=== PATIENT | male | born 1995 | race Caucasian/White ===

== ENCOUNTER 2018-06-29 18:42 | Emergency (ER) | payer BC, OTHER ==
[2018-06-29] MEDS ORDERED: LORazepam 2 MG/ML INJ IVP ONE (18:43)
[2018-06-29] MEDS ORDERED: NS 1,000 ML IV ONE ×2 (18:43→19:27)
--- NOTE | 2018-06-29 18:49 | EDPHY ---
H & P Time Seen by Provider: 06/29/18 18:43 HPI/ROS: CHIEF COMPLAINT: Seizure HISTORY OF PRESENT ILLNESS: The patient is a 22-year-old man whose friends called paramedics because he had a generalized tonic-clonic seizure. He does have oral trauma. No incontinence. He denies recent fevers or illness. He states that he has never had a seizure before but he has had several concussions. He thinks he may have had a concussion either yesterday or the day before but does not remember the circumstances. He is still slightly postictal. He is improved compared to when paramedics 1st picked him up. His vital signs are stable. He does not take any medications. He denies significant alcohol ingestion or withdrawal. He denies benzodiazepine use. Does have a mild headache. Severity: Moderate Modifying factors: Improving with time REVIEW OF SYSTEMS: Constitutional: denies: chills, fever, recent illness, recent injury EENTM: denies: blurred vision, double vision, nose congestion Respiratory: denies: cough, shortness of breath Cardiac: denies: chest pain, irregular heart rate, lightheadedness, palpitations Gastrointestinal/Abdominal: denies: abdominal pain, diarrhea, nausea, vomiting, blood streaked stools Genitourinary: denies: dysuria, frequency, hematuria, pain Musculoskeletal: denies: joint pain, muscle pain Skin: denies: lesions, rash, jaundice, bruising Neurological: See HPI, mild confusion denies: headache, numbness, paresthesia, tingling, dizziness, weakness Hematologic/Lymphatic: denies: blood clots, easy bleeding, easy bruising Immunologic/allergic: denies: HIV/AIDS, transplant 10 systems reviewed and negative except as noted EXAM: GENERAL: Well-appearing, well-nourished and in no acute distress. HEAD: Atraumatic, normocephalic. EYES: Pupils equal round and reactive to light, extraocular movements intact, sclera anicteric, conjunctiva are normal. ENT: TMs normal, nares patent, small abrasion to anterior tongue. Moist mucous membranes. NECK: Normal range of motion, supple without lymphadenopathy or JVD. LUNGS: Breath sounds clear to auscultation bilaterally and equal. No wheezes rales or rhonchi. HEART: Regular rate and rhythm without murmurs, rubs or gallops. ABDOMEN: Soft, nontender, normoactive bowel sounds. No guarding, no rebound. No masses appreciated. BACK: No CVA tenderness, no spinal tenderness, step-offs or deformities EXTREMITIES: Normal range of motion, no pitting or edema. No clubbing or cyanosis. NEUROLOGICAL: Cranial nerves II through XII grossly intact. Normal speech, normal gait. 5/5 strength, normal movement in all extremities, normal sensation , normal reflexes PSYCH: Normal mood, normal affect. SKIN: Warm, dry, normal turgor, no visible rashes or lesions. Source: Patient, EMS Exam Limitations: Clinical condition - Medical/Surgical History Hx Asthma: No Hx Chronic Respiratory Disease: No Hx Diabetes: No Hx Cardiac Disease: No Hx Renal Disease: No Hx Cirrhosis: No Hx Alcoholism: No Hx HIV/AIDS: No Hx Splenectomy or Spleen Trauma: No Other PMH: denies - Family History Significant Family History: No pertinent family hx - Social History Smoking Status: Never smoked Alcohol Use: Occasionally Drug Use: None Constitutional: Initial Vital Signs Temperature (C) 36.5 C 06/29/18 18:50 Heart Rate 95 06/29/18 18:50 Respiratory Rate 16 06/29/18 18:50 Blood Pressure 130/60 H 06/29/18 18:50 O2 Sat (%) 100 06/29/18 18:50 O2 Delivery Mode Room Air Allergies/Adverse Reactions: No Known Allergies Allergy (Unverified 08/24/16 13:26) Home Medications: Medication Instructions Recorded NK [No Known Home Meds] 08/24/16 Medical Decision Making - Diagnostics Imaging Results: Imaging Impressions Head CT 06/29/18 18:44 Impression: Severely motion limited study with no acute intracranial findings. If symptoms persist and medical suspicion warrants, consider repeat CT or MRI. Findings discussed with TAYLOR RICE 06/29/2018 at 19:27. Imaging: Discussed imaging studies w/ banquet server on call Radiologist ED Course/Re-evaluation: We discussed the CT results which are reassuring. Patient's electrolytes are reassuring other than his large gap. I will hydrate and recheck patient is mentating normally currently. 9:20 p.m. patient is feeling completely better. His anion gap is closed. His family is here to take him. We discussed seizures and follow up with Neurology. We discussed indications for returning. Differential Diagnosis: Partial list of the Differential diagnosis considered include but were not limited to; seizure, withdrawal, epilepsy and although unlikely based on the history and physical exam, I also considered trauma, infection. - Data Points Laboratory Results: Laboratory Results 06/29/18 18:45 18 20:30 18 18 06/29/18 20:30 18:45 18:45 WBC 8.55 10^3/uL 10^3/uL (3.80-9.50) RBC 5.62 10^6/uL 10^6/uL (4.40-6.38) Hgb 18.4 g/dL H g/dL (13.7-17.5) Hct 54.0 % H % (40.0-51.0) MCV 96.1 fL fL (81.5-99.8) MCH 32.7 pg pg (27.9-34.1) MCHC 34.1 g/dL g/dL (32.4-36.7) RDW 12.4 % % (11.5-15.2) Plt Count 309 10^3/uL 10^3/uL (150-400) MPV 9.5 fL fL (8.7-11.7) Neut % (Auto) 47.3 % % (39.3-74.2) Lymph % (Auto) 40.9 % % (15.0-45.0) Sargent % (Auto) 8.9 % % (4.5-13.0) Eos % (Auto) 1.9 % % (0.6-7.6) Baso % (Auto) 0.6 % % (0.3-1.7) Nucleat RBC Rel Count 0.0 % % (0.0-0.2) Absolute Neuts (auto) 4.05 10^3/uL 10^3/uL (1.70-6.50) Absolute Lymphs (auto) 3.50 10^3/uL H 10^3/uL (1.00-3.00) Absolute Monos (auto) 0.76 10^3/uL 10^3/uL (0.30-0.80) Absolute Eos (auto) 0.16 10^3/uL 10^3/uL (0.03-0.40) Absolute Basos (auto) 0.05 10^3/uL 10^3/uL (0.02-0.10) Absolute Nucleated RBC 0.00 10^3/uL 10^3/uL (0-0.01) Immature Gran % 0.4 % % (0.0-1.1) Immature Gran # 0.03 10^3/uL 10^3/uL (0.00-0.10) Sodium 140 mEq/L mEq/L 140 mEq/L mEq/L (135-145) (135-145) Potassium 3.6 mEq/L mEq/L 4.1 mEq/L mEq/L (3.3-5.0) (3.3-5.0) Chloride 108 mEq/L mEq/L 100 mEq/L mEq/L (97-110) (97-110) Carbon Dioxide 23 mEq/l mEq/l 13 mEq/l L mEq/l (22-31) (22-31) Anion Gap 9 mEq/L mEq/L 27 mEq/L H mEq/L (8-16) (8-16) BUN 7 mg/dL mg/dL 7 mg/dL mg/dL (7-23) (7-23) Creatinine 0.9 mg/dL mg/dL 1.1 mg/dL mg/dL (0.7-1.3) (0.7-1.3) Estimated GFR > 60 > 60 Glucose 94 mg/dL mg/dL 150 mg/dL H mg/dL (70-100) (70-100) Calcium 9.1 mg/dL mg/dL 10.5 mg/dL H mg/dL (8.5-10.4) (8.5-10.4) Medications Given: Discontinued Medications Sodium Chloride (Ns) 1,000 mls @ 0 mls/hr IV ONCE ONE; Wide Open PRN Reason: Protocol Stop: 06/29/18 18:44 Last Admin: 06/29/18 19:10 Dose: 1,000 mls Sodium Chloride (Ns) 1,000 mls @ 0 mls/hr IV EDNOW ONE; Wide Open PRN Reason: Protocol Stop: 06/29/18 19:28 Last Admin: 06/29/18 19:32 Dose: 1,000 mls Lorazepam (Ativan Injection) 1 mg IVP EDNOW ONE Stop: 06/29/18 18:44 Last Admin: 06/29/18 19:10 Dose: 1 mg Departure - Departure Disposition: Home, Routine, Self-Care Clinical Impression: Seizure Condition: Fair Instructions: New-Onset Seizure in Adults (ED) Additional Instructions: Do not drive, swim or operate heavy machinery until cleared by Neurology. Referrals: Patient,NotPresent [Unknown] - As per Instructions Taylor Cerna DO [Doctor of Osteopathy] - 5-7 days, if not improved
[2018-06-29 19:04] LABS: PLATELET COUNT 309 10^3/uL (150-400)
[2018-06-29 21:45] VITALS: BP 126/94
== END 2018-06-29 21:44 | disposition home or self-care (01) ==
LOC: EDUNIT#
DX: R56.9 Unspecified convulsions (principal); E86.9 Volume depletion, unspecified
CPT/HCPCS: 96374; J2060

== ENCOUNTER → 2018-07-27 | Outpatient (CLI) | payer BC, OTHER | LOC: FIMAGING 11:00 | PROVIDERS: ATTEND Physician Assistant Medical | DX: R56.9 Unspecified convulsions (principal) ==

== ENCOUNTER → 2018-08-03 | Outpatient (CLI) | payer BC ==
--- NOTE | 2018-08-03 12:06 | CPEEG ---
DATE OF STUDY: 08/03/2018 INTERPRETATION: Normal EEG during wakefulness and drowsiness. There were no potentially epileptogen ic abnormalities present during the recording. REPORT: This EEG contains 10 Hz alpha activity to the posterior head regions. There was no abnormal activation at rest, during photic stimulation or hyperventilation. The patient intermittently becam e drowsy during the study. There was no abnormal activation during drowsiness or during times of niko usal. The patient did not fall into sustained sleep during the study. If clinically indicated, a re peat 4-hour video EEG could be helpful in capturing sustained sleep. /[id number]/MODL
== END ==
LOC: FCPNEURO 09:55
PROVIDERS: ATTEND Physician Assistant Medical
DX: R56.9 Unspecified convulsions (principal)

== ENCOUNTER 2018-10-02 13:46 | Emergency (ER) | payer OTHER ==
--- NOTE | 2018-10-02 14:44 | EDPHY ---
HPI/HX/ROS/PE/MDM Narrative: CLINICAL IMPRESSION: Facial contusion, cervical strain, Auricular contusion, concussion ASSESSMENT/PLAN: 23-year-old very pleasant otherwise healthy meg at [facility] presents to the emergency department after he drank heavily for his 23st birthday last night and had several falls. Patient presents with several abrasions to the face, a large contusion to the left auricle with no evidence of an auricular hematoma, contusion to the left mastoid and reproducible midline neck pain. Patient was placed in a C-collar shortly after arrival. CT head, C-spine and maxillofacial bones was obtained and read by Radiology as negative for any acute fracture, subluxation, or intracranial hemorrhage. C- collar were then removed by myself. Patient remains without upper extremity radiculopathy or weakness. He has an otherwise nonfocal neurological exam. He does not require I&D of an auricular hematoma. Vaccines are up-to-date. Local primary care referral given and encouraged follow-up in the next 24-48 hours. 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 Home care reviewed , warning signs return to ED sooner outlined in person and discharge papers. DIFFERENTIAL DX: Differential diagnosis includes but not limited to maxillofacial fracture, basilar skull fracture, C-spine fracture, C-spine subluxation, cervical strain, facial contusion, concussion, postconcussive syndrome ED PROCEDURES: See imaging results below ED COURSE: 3:25 p.m.: CT results discussed with Dr. Blake from Radiology. No evidence of acute basilar skull fracture, intracranial bleeding, facial fractures or acute C-spine fracture or subluxation. CHIEF COMPLAINT: Facial pain, ear pain, headache, dizziness HPI: This is a very pleasant 23-year-old [facility] meg who presents to the emergency department stating"it was my 23st birthday last night". Patient reports that he does not remember anything from the night. He states he did go to a fraternity green party and was apparently being walked home by his return and a brother. A group of students approach them and his fraternity brother let go of him briefly and he apparently fell. Patient however believes he fell multiple times last night however cannot recollect how many times he fell. When he awoke this morning he noted bruising and pain along the left ear , facial abrasions and pain, neck pain, dizziness and headache. He reports no nausea or vomiting. No reported upper extremity weakness or numbness. He did not take anything for headache. He has no history of TBI or prior closed head injury and is not anticoagulated. No seizure activity. He does not recollect how much he had to drink last night. He is otherwise healthy and reports no other medical history. He did not abuse drugs last night. Tetanus is up-to- date. PMH: None reported Pertinent Past Surgical History: None reported Family History: Noncontributory Social History: A meg at [facility], nonsmoker REVIEW OF SYSTEMS: All other systems negative Constitutional: No fever, no chills, appetite change. Eyes: No discharge, vision change ENT: Left ear pain, no tinnitus hearing loss or discharge from the ear] Cardiovascular: No chest pain, no palpitations. Respiratory: No cough, no shortness of breath. Gastrointestinal: No abdominal pain, no vomiting, diarrhea. Genitourinary: No hematuria, dysuria, flank pain, pelvic pain Musculoskeletal: Positive for neck pain and upper back pain Skin: Positive for abrasions Neurological: Positive for headache and dizziness PHYSICAL EXAM: General Appearance: Alert, oriented, appropriate, cooperative, obvious swelling to face. Vital signs stable HEENT: TMs are clear bilaterally no perforation or FB, no injection, no evidence of serous or mucopurulent otitis. Large left a regular contusion with no drainable irregular hematoma. Bruising noted to the mastoid bone, unclear if this is Pelaez sign versus contusion from a fall. No hemotympanum Oropharynx clear is no erythema or exudates, no tonsillar hypertrophy or asymmetry. No septal hematoma or epistaxis Dentition without abnormality. No malocclusion or obvious dental injury. No intraoral laceration. No mandibular pain or trismus Eyes: PERRLA, no acute vision change, nystagmus, swelling, discharge, pain or photosensitivity. Conjunctiva pink, no pallor or injection. No diplopia or entrapment Neck: Supple, nontender, no lymphadenopathy, positive for midline pain through lower C-spine and upper thoracic spine, FROM although this worsens pain. Negative Spurling test,, no meningismus. Respiratory: There are no retractions, lungs are clear to auscultation, bruising noted to left anterior chest wall for. Cardiac: Regular rate and rhythm, no murmurs or gallops. Gastrointestinal: Abdomen is soft, nontender, bowel sounds normal, no masses/ hernia, no rigidity, guarding or focal peritoneal findings. Neurological: Alert and oriented x 3, CN 2-12 grossly intact, normal gait no ataxia, DTR's intact, normal sensation and strength Skin: Superficial abrasions to forehead and bridge of nose] Musculoskeletal: Extremities are symmetrical, full range of motion, no tenderness, deformity, swelling, or erythema. Psychiatric: Patient is oriented X 3, there is no agitation. MEDICAL DECISION MAKING: Patient was seen independently. Secondary supervising physician at time of evaluation was Dr. Rodarte . Diagnosis: Facial abrasions, facial and left auricle contusion, concussion, closed-head injury, cervical strain. New, requires workup Summary: See Assessment and Plan for summary of ED visit Independent visualization of images, tracing, or specimens: Yes. Discussed patient with another provider: Radiology Patient Progress: Stable. - Data Points Imaging Results: Imaging Impressions Cervical Spine CT 10/02/18 14:32 Impression: No acute posttraumatic abnormality identified. If there is persistent pain or neurologic deficit, consider MRI and/or flexion and extension views if clinically indicated. Findings discussed with Adrian Lainez 10/02/2018 at 15:22. Face CT 10/02/18 14:32 Impression: No acute findings. Findings discussed with Adrian Lainez 10/02/2018 at 15:22. Head CT 10/02/18 14:32 Impression: No acute intracranial findings. Findings discussed with Adrian Lainez 10/02/2018 at 15:22. General Time Seen by Provider: 10/02/18 14:06 Initial Vital Signs: Initial Vital Signs Temperature (C) 36.7 C 10/02/18 13:55 Heart Rate 107 H 10/02/18 13:55 Respiratory Rate 16 10/02/18 13:55 Blood Pressure 135/84 H 10/02/18 13:55 O2 Sat (%) 92 10/02/18 13:55 O2 Delivery Mode Room Air Allergies/Adverse Reactions: No Known Allergies Allergy (Unverified 08/24/16 13:26) Home Medications: Medication Instructions Recorded NK [No Known Home Meds] 08/24/16 Departure - Departure Disposition: Home, Routine, Self-Care Clinical Impression: Facial contusion Closed head injury Qualifiers: Encounter type: initial encounter Qualified Code(s): S09.90XA - Unspecified injury of head, initial encounter Concussion Qualifiers: Encounter type: initial encounter Loss of consciousness presence/duration: without LOC Qualified Code(s): S06.0X0A - Concussion without loss of consciousness, initial encounter Contusion of auricle of left ear Qualifiers: Encounter type: initial encounter Qualified Code(s): S00.432A - Contusion of left ear, initial encounter Condition: Good Instructions: Concussion (ED), Post Concussion Syndrome (ED) Additional Instructions: DISCHARGE INSTRUCTIONS FROM YOUR DOCTOR Thank you for visiting our emergency department today. Please keep in mind that discharge from the emergency department does not mean that there is nothing wrong - it simply means that we have not identified an emergency condition that requires further evaluation or treatment in the hospital. You should always plan to follow up with primary care for re-evaluation of your condition in the next 2-3 days. If you have been referred to a specialist, please call as soon as possible (today or tomorrow) to schedule your follow up appointment at the appropriate time. The radiologist read the CT scan of her head, neck, and face as negative for bleeding in the brain, facial bone fractures, or C-spine fractures. You likely suffered a concussion. We provided handouts with information on concussion and post concussive syndrome. Please avoid TV, video games, computers, texting, and contact sports until you are cleared by primary care provider. Please see a primary care provider in the next 24-48 hours for recheck. If you do not have one, referrals were given. Return to the emergency department immediately for severe headache, seizure activity, persistent vomiting, altered mental status worsening neck pain with upper extremity numbness tingling or weakness, or any other concern. People present with illnesses and injuries in different ways, and it is always possible that we have missed something. You may always return for re-evaluation if symptoms worsen or if they are not improving or if you develop new/different symptoms. Again, thank you for choosing our emergency department. We hope that you feel better. Referrals: NONE *PRIMARY CARE P,. [Primary Care Provider] - As per Instructions Juan Reyes MD [[facility] [place] Primary Care Provider] - As per Instructions [facility],. [Clinic] - As per Instructions
[2018-10-02 15:58] VITALS: BP 134/81
--- NOTE | 2018-10-03 14:22 | ASMTCAGE ---
CAGE Additional Comments Unable to complete due to patient having been discharged Date Signed: 10/02/2018 05:17 PM Electronically Signed By:Gaby Cabrera RN
== END 2018-10-02 15:58 | disposition home or self-care (01) ==
DX: S06.0X0A Concussion without loss of consciousness, initial encounter (principal); F10.920 Alcohol use, unspecified with intoxication, uncomplicated; S00.81XA Abrasion of other part of head, initial encounter; S00.432A Contusion of left ear, initial encounter; M54.2 Cervicalgia; M54.6 Pain in thoracic spine; W19.XXXA Unspecified fall, initial encounter; Y92.89 Other specified places as the place of occurrence of the external cause; Y93.89 Activity, other specified; Y99.9 Unspecified external cause status
CPT/HCPCS: L0172